=== PATIENT | female | born 1995 | race African-American/Black ===

== ENCOUNTER 2021-11-30 14:37 | Emergency (ER) | payer MEDICAID ==
[~2021-11-30] VITALS: Ht 165.1 cm; Wt 57.9 kg
[2021-11-30 15:30] VITALS: BP 110/72
[2021-11-30] MEDS ORDERED: DIPHTH,PERTUSS(ACELL),TET TOX 0.5 ML DISP.SYRIN. VAX IM ONE (16:15)
[2021-11-30] MEDS ORDERED: LIDOCAINE 2% 20 ML VIAL. IJ ONE (16:15)
--- NOTE | 2021-11-30 16:41 | PHYS DOC ---
Past History Past Surgical History: No Surgical History (ZHEN MC) Alcohol Use: None (ZHEN MC) General Adult EDM: Chief Complaint: LACERATION/AVULSION HPI: HPI: Patient is a 26 year old female who presents with laceration to her right little finger. Patient was passing scissors to someone, when the blade cut the end of her finger. She denies any crush injury. Patient states her tetanus vaccination has not been updated in the past 5 years. She has no other complaints at this time. (ZHEN MC) Review of Systems: Review of Systems: ROS negative or noncontributory except as mentioned in HPI. (ZHEN MC) Current Medications: Current Meds: Current Medications Medications (Trade) Dose Ordered Sig/Jeb Start Time Stop Time Status Last Admin Dose Admin Diphtheria/ Tetanus/Acell Pertussis (Boostrix) 0.5 ml ONCE ONCE 11/30/21 16:15 11/30/21 16:21 DC 11/30/21 16:29 0.5 ML Lidocaine HCl (Lidocaine 2%) 20 ml 1X ONCE 11/30/21 16:15 11/30/21 16:21 DC 11/30/21 16:28 20 ML (ZHEN MC) Allergies: Allergies: Allergies Coded Allergies Type Severity Reaction Last Updated Verified No Known Drug Allergies 11/30/21 No (ZHEN MC) Physical Exam: PE: Constitutional: Well developed, well nourished, no acute distress, non-toxic appearance. HENT: Normocephalic, atraumatic, bilateral external ears normal, nose normal. Eyes: EOMI, conjunctiva normal, no discharge. Neck: Normal range of motion, no stridor. Skin: 1 cm L-shaped laceration noted just distal to the DIP joint on the finger pad of right digit 5. Skin otherwise warm, dry, no erythema, no rash. Extremities: No tenderness, no cyanosis, no clubbing, ROM intact, no edema, distal pulses intact. Neurologic: Alert and oriented x4, no focal deficits noted. (ZHEN MC) Current Patient Data: Vital Signs: Vital Signs Date Time Temp Pulse Resp B/P (MAP) Pulse Ox O2 Delivery O2 Flow Rate FiO2 11/30/21 15:30 98.1 80 20 110/72 (85) 100 Room Air (ZHEN MC) Heart Score: C/O Chest Pain: No (ZHEN MC) Course & Med Decision Making: Course & Med Decision Making Pertinent Labs and Imaging studies reviewed. (See chart for details) Patient is an otherwise healthy 26 old female who presents with a laceration to her right pinky finger. Patient's tetanus vaccination has not been updated in the past 5 years, so will be obtained today. Patient tolerated laceration repair very well. She was given wound care instructions, return precautions and follow-up instruction. Patient understands and is agreeable to discharge plan. (ZHEN MC) Course & Med Decision Making I was the Attending physician on the above date of service of this patient. This patient was evaluated, examined, treated, and dispositioned from the emergency department by the mid-level practitioner. Although I was working at the time , no assistance was requested. Electronically signed, Sarah Wagner DO (SARAH WAGNER DO) John Disclaimer: John Disclaimer: This electronic medical record was generated, in whole or in part, using a voice recognition dictation system. (ZHEN MC) Laceration Repair Lac Repair Indication: Right digit 5 fingerbreadth laceration Procedure: The patient was placed in the appropriate position and anesthesia around the laceration was 2 mL 2% lidocaine plain digital block. The area was then irrigated with sterile saline and cleansed with chlorhexidine. The laceration was closed with 3 simple interrupted 6-0 nylon sutures. The wound area was then dressed with antibiotic ointment and an adhesive bandage. Total repaired wound length: 1 cm. Other Items: The patient tolerated the procedure very well. Complications: None. (ZHEN MC) Departure Departure: Impression: Primary Impression: Laceration of little finger without complication Qualified Codes: S61.218A - Laceration without foreign body of other finger without damage to nail, initial encounter Disposition: HOME / SELF CARE / HOMELESS Condition: IMPROVED Referrals: PCP,NO (PCP) Patient Instructions: Fingertip Laceration, Sutured Wound Care, [id number] Additional Instructions: EMERGENCY DEPARTMENT GENERAL DISCHARGE INSTRUCTIONS Thank you for coming to [facility] ([facility]) today and trusting us with you care. We trust that you had a positive experience in our Emergency Department. If you wish to speak to the department management, you may call the director at [phone]. YOUR FOLLOW UP INSTRUCTIONS ARE FOLLOWS: 1. Follow up with your primary care doctor in 7-10 days for suture removal. If you do not have a primary doctor, please ask for a resource list of physicians or clinics that may be able to assist you with follow up care. Otherwise, you may visit urgent care or return to the ER for suture removal. 2. The emergency provider has interpreted your imaging studies, if any were ordered. The radiology hearing specialist also reviewed them. If there is a change in the findings, you will be notified in 48 hours when at all possible. 3. If a lab test or culture has been done, your results will be reviewed and you will be notified if you need a change in treatment. 4. Follow instructions verbalized to you and refer to the printouts if needed. ADDITIONAL INSTRUCTIONS AND INFORMATION: 1. Your care today has been supervised by a physician who is specially trained in emergency care. Many problems require more than one evaluation for a complete diagnosis and treatment. We recommend that you schedule your follow up appointment as recommended to ensure complete treatment of you illness or injury. If you are unable to obtain follow up care and continue to have a problem, or if your condition worsens, we recommend that you return to the ED. 2. We are not able to safely determine your condition over the phone nor are we able to give sound medical advice over the phone. For these safety reasons, if you call for medical advice we will ask you to come to the ED for further evaluation. 3. If you have any questions regarding these discharge instructions please call the ED at [phone]. SAFETY INFORMATION: In the interest of safety, wellness, and injury prevention; we encourage you to wear your seat belt, if you smoke; quite smoking, and we encourage family to use a protective helmet for bicycling and other sporting events that present an increased risk for head injury. IF YOUR SYMPTOMS WORSEN OR NEW SYMPTOMS DEVELOP, OR YOU HAVE CONCERNS ABOUT YOUR CONDITION; OR IF YOUR CONDITION WORSENS WHILE YOU ARE WAITING FOR YOUR FOLLOW UP APPOINTMENT; EITHER CONTACT YOUR PRIMARY CARE DOCTOR, THE PHYSICIAN WHOSE NAME A ND NUMBER YOU WERE GIVEN, OR RETURN TO THE ED IMMEDIATELY. Scripts Ibuprofen (IBUPROFEN) 600 Mg Tablet 600 MG PO PRN Q6-8HRS PRN for PAIN, #20 TAB Prov: ZHEN MC 11/30/21 ZHEN MC Nov 30, 2021 16:41 SARAH WAGNER DO Dec 01, 2021 08:11
[2021-11-30] MEDS ORDERED: BACITRACIN ZINC TOPICAL OINT PACKET. TP ONE ×2 (17:05→17:15)
[2021-11-30] MEDS ORDERED: IBUP600T16 PO (17:24)
== END 2021-11-30 17:15 | disposition home or self-care (01) ==
LOC: ER 14:37
DX: S61.216A Laceration without foreign body of right little finger without damage to nail, initial encounter (principal); W27.2XXA Contact with scissors, initial encounter; Y93.89 Activity, other specified; Y92.89 Other specified places as the place of occurrence of the external cause; Y99.8 Other external cause status
CPT/HCPCS: 12001; 90471; 90715; 99283; J2001

== ENCOUNTER 2021-12-15 15:53 | Emergency (ER) | payer MEDICAID ==
[~2021-12-15] VITALS: Ht 165.1 cm; Wt 57.9 kg
[~2021-12-15 15:53] MED LIST: IBUP600T16 PO
--- NOTE | 2021-12-15 16:14 | PHYS DOC ---
Past History Past Surgical History: No Surgical History Alcohol Use: None General Adult EDM: Chief Complaint: SUTURE/STAPLE REMOVAL HPI: HPI: Patient is a 26-year-old female who presents for suture removal. Patient denies pain, no signs of infection. Denies all complaints. Review of Systems: Review of Systems: ROS At least 10 ROS systems have been reviewed and are negative except as documented in the HPI. General: Negative except as outlined in HPI above. Skin: Negative except as outlined in HPI above. HEENT: Negative except as outlined in HPI above. Neck: Negative except as outlined in HPI above. Respiratory: Negative except as outlined in HPI above.. Cardiovascular: Negative except as outlined in HPI above. Abdomen: Negative except as outlined in HPI above. : Negative except as outlined in HPI above. Back/MSK: Negative except as outlined in HPI above. Neuro: Negative except as outlined in HPI above. Psych: Negative except as outlined in HPI above. Allergies: Allergies: Allergies Coded Allergies Type Severity Reaction Last Updated Verified No Known Drug Allergies 11/30/21 No Physical Exam: PE: Constitutional: Well developed, well nourished, no acute distress, non-toxic appearance. [] HENT: Normocephalic, atraumatic, bilateral external ears normal, oropharynx moist, no oral exudates, nose normal. [] Eyes: PERRLA, EOMI, conjunctiva normal, no discharge. [] Neck: Normal range of motion, no tenderness, supple, no stridor. [] Cardiovascular:Heart rate regular rhythm, no murmur [] Lungs & Thorax: Bilateral breath sounds clear to auscultation [] Abdomen: Bowel sounds normal, soft, no tenderness, no masses, no pulsatile masses. [] Skin: Sutures to left, index finger. No signs of infection. No tenderness. EKG: EKG: [] Radiology/Procedures: Radiology/Procedures: [] Heart Score: C/O Chest Pain: No Risk Factors: Risk Factors: DM, Current or recent (<one month) smoker, HTN, HLP, family history of CAD, obesity. Risk Scores: Score 0 - 3: 2.5% MACE over next 6 weeks - Discharge Home Score 4 - 6: 20.3% MACE over next 6 weeks - Admit for Clinical Observation Score 7 - 10: 72.7% MACE over next 6 weeks - Early Invasive Strategies Course & Med Decision Making: Course & Med Decision Making Pertinent Labs and Imaging studies reviewed. (See chart for details) [] 26-year-old presents with suture removal. Denies pain, no signs of infection. John Disclaimer: John Disclaimer: This electronic medical record was generated, in whole or in part, using a voice recognition dictation system. Departure Departure: Impression: Primary Impression: Visit for suture removal Disposition: HOME / SELF CARE / HOMELESS Condition: STABLE Referrals: PCP,NO (PCP) Patient Instructions: Sutured Wound Care, [id number] Additional Instructions: EMERGENCY DEPARTMENT GENERAL DISCHARGE INSTRUCTIONS Thank you for coming to [facility] (ED) today and trusting us with you care. We trust that you had a positivie experience in our Emergency Department. If you wish to speak to the department management, you may call the director at [phone]. YOUR FOLLOW UP INSTRUCTIONS ARE FOLLOWS: 1. Do you have a private Doctor? If you do not have a private doctor, please ask for a resource list of physicians or clinics that may be able to assist you with follow up care. 2. The Emergency Physician has interpreted your x-rays. The X-Ray specialist will also review them. If there is a change in the findings, you will be notified in 48 hours when at all possible. 3. A lab test or culture has been done, your results will be reviewed and you will be notified if you need a change in treatment. ADDITIONAL INSTRUCTIONS AND INFORMATION: 1. Your care today has been supervised by a physician who is specially trained in emergency care. Many problems require more than one evaluation for a complete diagnosis and treatment. We recommend that you schedule your follow up appointment as recommended to ensure complete treatment of you illness or injury. If you are unable to obtain follow up care and continue to have a problem, or if your condition worsens, we recommend that you return to the ED. 2. We are not able to safely determine your condition over the phone nor are we able to give sound medical advice over the phone. For these safety reasons, if you call for medical advice we will ask you to come to the ED for further evaluation. 3. If you have any questions regarding these discharge instructions please call the ED at [phone]. SAFETY INFORMATION: In the interest of safety, wellness, and injury prevention; we encourage you to wear your sealbelt, if you smoke; quite smoking, and we encourage family to use a protective helmet for bicycling and other sporting events that present an increased risk for head injury. IF YOUR SYMPTOMS WORSEN OR NEW SYMPTOMS DEVELOP, OR YOU HAVE CONCERNS ABOUT YOUR CONDITION; OR IF YOUR CONDITION WORSENS WHILE YOU ARE WAITING FOR YOUR FOLLOW UP APPOINTMENT; EITHER CONTACT YOUR PRIMARY CARE DOCTOR, THE PHYSICIAN WHOSE NAME AND NUMBER YOU WERE GIVEN, OR RETURN TO THE ED IMMEDIATELY. AUGUSTINA BURLESON APRN Dec 15, 2021 16:14
[2021-12-15 16:19] VITALS: BP 130/68
== END 2021-12-15 16:22 | disposition home or self-care (01) ==
LOC: ER 15:53
DX: S61.211D Laceration without foreign body of left index finger without damage to nail, subsequent encounter (principal); X58.XXXD Exposure to other specified factors, subsequent encounter
CPT/HCPCS: 99281